=== PATIENT | female | born 1945 | race Hispanic/Latino ===

== ENCOUNTER 2021-08-11 17:25 | Inpatient (IN) | payer MEDICARE, OTHER ==
[~2021-08-11] VITALS: Ht 154.9 cm; Wt 48.4 kg
[2021-08-11 18:09] LABS: BASOPHILS % (AUTO) 0.1 % (0.0-5.0); HEMATOCRIT 29.4 % (36-48); LYMPHOCYTES % (AUTO) 2.4 % (21.0-51.0); MEAN CORPUSCULAR HEMOGLOBIN 31.3 pg (27.0-33.0); MEAN CORPUSCULAR HGB CONC 36.4 g/dL (32.0-36.0); MONOCYTES % (AUTO) 6.3 % (3.0-13.0); NEUTROPHILS % (AUTO) 89.4 % (40.0-77.0); PLATELET COUNT (AUTO) 222 K/uL (130-400); RED BLOOD CELL COUNT(AUTO) 3.42 MIL/uL (4.00-5.50); RED CELL DISTRIBUTION WIDTH 11.6 % (11.0-15.5); WHITE BLOOD COUNT (AUTO) 16.4 K/uL (4.8-10.8)
[2021-08-11 18:38] LABS: ALBUMIN 3.2 g/dL (3.5-5.0); BILIRUBIN,TOTAL 7.6 mg/dL (0.2-1.0); CREATININE 0.6 mg/dL (0.5-1.5); POTASSIUM 3.8 mmol/L (3.5-5.1); TOTAL PROTEIN, SERUM 6.8 g/dL (6.0-8.3)
[2021-08-11] MEDS ORDERED: SODIUM CHLORIDE 3% 100 ML IV ONE (19:30)
[2021-08-11] MEDS ORDERED: 0.9%NACL 1000ML 1,000 ML IV ONE (19:30)
[2021-08-11] MEDS ORDERED: DIATR MEGLU/DIATRIZOATE SODIUM 30 ML BOTTLE ONE (19:56)
[2021-08-11] MEDS ORDERED: IOHEXOL 350 MG/ML 100ML INFUS..BTL IV ONE (19:57)
[2021-08-11 22:01] LABS: APPEARANCE,URINE Clear (CLEAR); BILIRUBIN,URINE Moderate (NEGATIVE); COLOR,URINE Dark Yellow (YELLOW); GLUCOSE, URINE (UA) >=1000 mg/dL (NEGATIVE); KETONES,URINE 40 mg/dL (NEGATIVE); LEUKOCYTE ESTERASE ,URINE Negative (NEGATIVE); NITRATE,URINE Negative (NEGATIVE); OCCULT BLOOD,URINE Moderate (NEGATIVE); PROTEIN,URINE 300 mg/dL (NEGATIVE); UROBILINOGEN,URINE 0.2 mg/dL (0.2-1.0)
[2021-08-11 22:09] LABS: BACTERIA,URINE Rare /HPF (None Seen); WBC,URINE 0-1 /HPF (0-1)
[2021-08-11 22:10] LABS: SQUAMOUS EPITHELIAL CELL,UR Rare /HPF (0-2)
[2021-08-11] MEDS ORDERED: SITA100T12 PO (23:39)
[2021-08-11] MEDS ORDERED: METF-444 PO (23:39)
[2021-08-11] MEDS ORDERED: PIOG30TA70 PO (23:39)
[2021-08-11] MEDS ORDERED: GLIP5TAB11 PO (23:39)
[2021-08-11] MEDS ORDERED: PRAV20TA4 PO (23:39)
[2021-08-12] VITALS (15 sets, daily range): BP systolic 94–143; BP diastolic 36–64
[2021-08-12] MEDS ORDERED: INSULIN HUMULIN R 100 UNIT/ML 3ML SQ ONE
[2021-08-12] MEDS ORDERED: NITROGLYCERIN 0.4 MG SL TAB SL PRN
[2021-08-12] MEDS ORDERED: DEXTROSE 50%-WATER 50 ML DISP.SYRIN IV PRN
[2021-08-12] MEDS ORDERED: ONDANSETRON 4MG INJ IV PRN
[2021-08-12] MEDS ORDERED: GLUCAGON 1MG KIT 1 MG ML IM PRN
[2021-08-12 00:14] LABS: HEMOGLOBIN A1C 8.6 % (4.0-6.0)
[2021-08-12 00:23] LABS: ALBUMIN 2.8 g/dL (3.5-5.0); CREATININE 0.7 mg/dL (0.5-1.5); CRP QUANTITATIVE 114.8 mg/L (0.00-9.0); MAGNESIUM 1.6 mg/dL (1.80-2.40); POTASSIUM 3.7 mmol/L (3.5-5.1); TOTAL PROTEIN, SERUM 6.3 g/dL (6.0-8.3)
[2021-08-12 00:27] LABS: INR 1.09 (0.85-1.15); PROTHROMBIN TIME 11.8 SEC (9.6-11.6)
[2021-08-12 00:28] LABS: PARTIAL THROMBOPLASTIN TIME 25.4 SEC (26.3-35.5)
[2021-08-12] MEDS ORDERED: 0.9%NACL 1000ML 1,000 ML IV SCH (01:00)
[2021-08-12] MEDS: MAGNESIUM 2GM PREMIX 50ML 50 ML IV SCH ×2 (01:40→01:41)
[2021-08-12] MEDS ORDERED: HYDROMORPHONE 0.5 MG SYG (0.5MG/0.5ML) IVP PRN (02:00)
[2021-08-12] MEDS ORDERED: HYDRALAZINE 20MG/ML VIAL IV PRN (03:00)
[2021-08-12] MEDS: ZOSYN 3.375GM +NS 50ML IV SCH ×3 (03:41→18:11)
[2021-08-12 06:29] LABS: AMMONIA < 3 umol/L (11-32); SODIUM SERUM 119 mmol/L (136-145); THYROID STIMULATING HORMONE 0.29 uIU/mL (0.36-3.74)
[2021-08-12] MEDS: INSULIN HUMULIN R 100 UNIT/ML 3ML SQ SCH ×4 (07:30→21:00)
[2021-08-12] MEDS ORDERED: PREG100C55 PO (07:38)
[2021-08-12] MEDS ORDERED: VANCOMYCIN PROTOCOL PER PHARMACY IV SCH (08:00)
[2021-08-12] MEDS ORDERED: ENOXAPARIN SODIUM 40 MG/0.4 ML SYRINGE SQ SCH (09:00)
[2021-08-12] MEDS: FAMOTIDINE 20MG TAB PO SCH ×2 (09:00→20:27)
[2021-08-12] MEDS ORDERED: 0.9%NACL 50ML 50 ML IV ONE (09:25)
[2021-08-12] MEDS ORDERED: VANCOMYCIN 1G/250ML KIT 250 ML IV SCH (10:00)
[2021-08-12 10:14] LABS: BASOPHILS % (AUTO) 0.2 % (0.0-5.0); LYMPHOCYTES % (AUTO) 1.9 % (21.0-51.0); MEAN CORPUSCULAR HEMOGLOBIN 31.2 pg (27.0-33.0); MEAN CORPUSCULAR HGB CONC 36.1 g/dL (32.0-36.0); MEAN CORPUSCULAR VOLUME 86.4 fL (79-99); MONOCYTES % (AUTO) 4.6 % (3.0-13.0); NEUTROPHILS % (AUTO) 90.5 % (40.0-77.0); PLATELET COUNT (AUTO) 151 K/uL (130-400); RED BLOOD CELL COUNT(AUTO) 3.59 MIL/uL (4.00-5.50); RED CELL DISTRIBUTION WIDTH 11.7 % (11.0-15.5); WHITE BLOOD COUNT (AUTO) 16.5 K/uL (4.8-10.8)
[2021-08-12] MEDS ORDERED: GADOTERATE MEGLUMINE 10 MMOL/20 ML VIAL IV ONE (10:20)
[2021-08-12 10:32] LABS: ALBUMIN 2.7 g/dL (3.5-5.0); BILIRUBIN,TOTAL 8.6 mg/dL (0.2-1.0); CREATININE 0.8 mg/dL (0.5-1.5); MAGNESIUM 2.5 mg/dL (1.80-2.40); POTASSIUM 3.4 mmol/L (3.5-5.1); TOTAL PROTEIN, SERUM 6.2 g/dL (6.0-8.3)
[2021-08-12 14:24] LABS: CREATININE,URINE RANDOM 84 mg/dL (30-135); POTASSIUM,URINE RANDOM 50 mmol/L (25-125); SODIUM,URINE RANDOM < 14 mmol/l (40-220)
[2021-08-12 14:25] LABS: CREATININE 0.9 mg/dL (0.5-1.5); POTASSIUM 3.4 mmol/L (3.5-5.1)
[2021-08-12 14:29] LABS: AMPHET/METH SCREEN,URINE NEGATIVE (NEGATIVE); BARBITURATE SCREEN, URINE NEGATIVE (NEGATIVE); BENZODIAZEPINES SCREEN,URINE NEGATIVE (NEGATIVE); CANNABINOID SCREEN,URINE NEGATIVE (NEGATIVE); COCAINE SCREEN,URINE NEGATIVE (NEGATIVE); OPIATE SCREEN,URINE NEGATIVE (NEGATIVE); PHENCYCLIDINE SCREEN,URINE NEGATIVE (NEGATIVE)
[2021-08-12] MEDS ORDERED: 1/2 NS 1000ML 1,000 ML IV SCH (18:30)
[2021-08-12] MEDS ORDERED: HEPARIN 5,000 UNIT VIAL SQ SCH (18:30)
[2021-08-12 18:31] LABS: CREATININE 0.9 mg/dL (0.5-1.5); POTASSIUM 3.3 mmol/L (3.5-5.1)
[2021-08-12 21:56] LABS: POTASSIUM 3.7 mmol/L (3.5-5.1)
[2021-08-13] VITALS (24 sets, daily range): BP systolic 94–149; BP diastolic 45–83
[2021-08-13 01:39] LABS: CREATININE 0.8 mg/dL (0.5-1.5); POTASSIUM 3.2 mmol/L (3.5-5.1)
[2021-08-13] MEDS ORDERED: POTASSIUM CHLORIDE 10% ELIXIR 20 MEQ/15 ML UDCUP PO PRN (02:30)
[2021-08-13] MEDS ORDERED: LIDOCAINE HCL-MPF 1% 2ML VIAL IV PRN (02:30)
[2021-08-13] MEDS ORDERED: 0.9%NACL 50ML 50 ML IV ONE ×2 (02:37→19:47)
[2021-08-13] MEDS ORDERED: KCL 20 MEQ ERTAB PO ONE (02:38)
[2021-08-13] MEDS: ZOSYN 3.375GM +NS 50ML IV SCH ×3 (02:41→20:03)
[2021-08-13 04:20] LABS: HEMATOCRIT 29.4 % (36-48); MEAN CORPUSCULAR HEMOGLOBIN 31.3 pg (27.0-33.0); MEAN CORPUSCULAR HGB CONC 35.7 g/dL (32.0-36.0); MEAN CORPUSCULAR VOLUME 87.5 fL (79-99); RED BLOOD CELL COUNT(AUTO) 3.36 MIL/uL (4.00-5.50); RED CELL DISTRIBUTION WIDTH 12.1 % (11.0-15.5); WHITE BLOOD COUNT (AUTO) 18.5 K/uL (4.8-10.8)
[2021-08-13 04:53] LABS: ALBUMIN 2.3 g/dL (3.5-5.0); BILIRUBIN,DIRECT 6.9 mg/dL (0.0-0.3); BILIRUBIN,TOTAL 8.4 mg/dL (0.2-1.0); CREATININE 0.9 mg/dL (0.5-1.5); MAGNESIUM 2.7 mg/dL (1.80-2.40); POTASSIUM 4.1 mmol/L (3.5-5.1); TOTAL PROTEIN, SERUM 5.7 g/dL (6.0-8.3)
[2021-08-13] MEDS ORDERED: METOPROLOL TARTRATE 1 MG/ML 5ML VIAL IV ONE (07:00)
[2021-08-13] MEDS ORDERED: METOPROLOL TARTRATE 1 MG/ML 5ML VIAL IV SCH (07:25)
[2021-08-13] MEDS ORDERED: HEPARIN 25,000 UNITS/250ML D5W 250 ML IV SCH ×2 (07:30→08:32)
[2021-08-13] MEDS ORDERED: DILTIAZEM 125 MG/25 ML INJ 125 MG in 0.9%NACL 100ML 100 ML IV PRN ×4 (07:30)
[2021-08-13] MEDS ORDERED: DILTIAZEM 25MG INJ IVP PRN (07:30)
[2021-08-13] MEDS: DILTIAZEM 125 MG/25 ML INJ 125 MG in 0.9%NACL 100ML 100 ML IV SCH (07:44)
[2021-08-13 07:56] LABS: BASOPHILS % (AUTO) 0.1 % (0.0-5.0); EOSINOPHILS % (AUTO) 0.1 % (0.0-8.0); HEMATOCRIT 29.8 % (36-48); LYMPHOCYTES % (AUTO) 2.9 % (21.0-51.0); MEAN CORPUSCULAR HEMOGLOBIN 31.2 pg (27.0-33.0); MEAN CORPUSCULAR HGB CONC 35.6 g/dL (32.0-36.0); MEAN CORPUSCULAR VOLUME 87.6 fL (79-99); MONOCYTES % (AUTO) 5.5 % (3.0-13.0); NEUTROPHILS % (AUTO) 89.8 % (40.0-77.0); PLATELET COUNT (AUTO) 118 K/uL (130-400); RED CELL DISTRIBUTION WIDTH 12.3 % (11.0-15.5); WHITE BLOOD COUNT (AUTO) 16.1 K/uL (4.8-10.8)
[2021-08-13] MEDS: 0.9% NACL 250ML 250 ML IV SCH (08:27)
[2021-08-13] MEDS: HEPARIN 5,000 UNIT VIAL SQ SCH ×2 (08:29→20:09)
[2021-08-13] MEDS ORDERED: HYDROMORPHONE 0.5 MG SYG (0.5MG/0.5ML) IVP PRN ×2 (08:30)
[2021-08-13 08:41] LABS: INR 1.05 (0.85-1.15); PROTHROMBIN TIME 11.4 SEC (9.6-11.6)
[2021-08-13 08:43] LABS: PARTIAL THROMBOPLASTIN TIME 33.5 SEC (26.3-35.5)
[2021-08-13] MEDS ORDERED: VANCOMYCIN 750MG VIAL IVPB SCH (09:00)
[2021-08-13 09:29] LABS: CREATININE 0.7 mg/dL (0.5-1.5); POTASSIUM 3.5 mmol/L (3.5-5.1)
[2021-08-13] MEDS: FAMOTIDINE 20MG VIAL IV SCH ×2 (09:42→20:03)
[2021-08-13 11:13] LABS: CREATININE 0.7 mg/dL (0.5-1.5); POTASSIUM 3.5 mmol/L (3.5-5.1)
[2021-08-13] MEDS: INSULIN HUMULIN R 100 UNIT/ML 3ML SQ SCH ×3 (11:19→20:09)
[2021-08-13 14:59] LABS: CREATININE 0.8 mg/dL (0.5-1.5); POTASSIUM 4.7 mmol/L (3.5-5.1)
[2021-08-13 19:06] LABS: CREATININE 0.8 mg/dL (0.5-1.5); POTASSIUM 4.3 mmol/L (3.5-5.1)
[2021-08-14] VITALS (23 sets, daily range): BP systolic 110–141; BP diastolic 38–67
[2021-08-14 03:57] LABS: BASOPHILS % (AUTO) 0.1 % (0.0-5.0); EOSINOPHILS % (AUTO) 0.1 % (0.0-8.0); HEMATOCRIT 28.3 % (36-48); LYMPHOCYTES % (AUTO) 3.5 % (21.0-51.0); MONOCYTES % (AUTO) 7.3 % (3.0-13.0); PLATELET COUNT (AUTO) 174 K/uL (130-400); RED BLOOD CELL COUNT(AUTO) 3.29 MIL/uL (4.00-5.50); RED CELL DISTRIBUTION WIDTH 12.3 % (11.0-15.5); WHITE BLOOD COUNT (AUTO) 14.1 K/uL (4.8-10.8)
[2021-08-14 04:12] LABS: CREATININE 0.8 mg/dL (0.5-1.5); POTASSIUM 4.3 mmol/L (3.5-5.1)
[2021-08-14] MEDS ORDERED: 0.9%NACL 50ML 50 ML IV ONE (05:32)
[2021-08-14] MEDS: ZOSYN 3.375GM +NS 50ML IV SCH ×3 (05:33→19:46)
[2021-08-14] MEDS: DILTIAZEM 125 MG/25 ML INJ 125 MG in 0.9%NACL 100ML 100 ML IV SCH (06:36)
[2021-08-14] MEDS: INSULIN HUMULIN R 100 UNIT/ML 3ML SQ SCH ×4 (07:30→20:10)
[2021-08-14 08:37] LABS: CREATININE 0.8 mg/dL (0.5-1.5); POTASSIUM 4.2 mmol/L (3.5-5.1)
[2021-08-14] MEDS ORDERED: VANCOMYCIN 750MG VIAL IVPB SCH (09:00)
[2021-08-14] MEDS: FAMOTIDINE 20MG VIAL IV SCH ×2 (09:37→19:45)
[2021-08-14] MEDS: 0.9% NACL 250ML 250 ML IV SCH (09:40)
[2021-08-14] MEDS ORDERED: PROPOFOL 10 MG/ML 20ML VIAL IV ONE (12:18)
[2021-08-14 13:38] LABS: CREATININE 0.7 mg/dL (0.5-1.5); POTASSIUM 3.2 mmol/L (3.5-5.1)
[2021-08-14] MEDS: HEPARIN 5,000 UNIT VIAL SQ SCH ×2 (14:01→20:09)
[2021-08-14] MEDS: KCL 20 MEQ ERTAB PO PRN ×2 (14:26→17:20)
[2021-08-14] MEDS ORDERED: DEXTROSE 5 % AND 0.9 % NACL 1,000 ML IV ONE (15:04)
[2021-08-14] MEDS: DEXTROSE 5 % AND 0.9 % NACL 1,000 ML IV SCH (15:31)
[2021-08-14] MEDS ORDERED: 0.9%NACL 50ML 100 ML IV ONE (19:22)
[2021-08-15] VITALS (22 sets, daily range): BP systolic 102–144; BP diastolic 41–68
[2021-08-15 04:08] LABS: HEMATOCRIT 26.7 % (36-48); MEAN CORPUSCULAR HEMOGLOBIN 31.5 pg (27.0-33.0); MEAN CORPUSCULAR VOLUME 87.5 fL (79-99); RED BLOOD CELL COUNT(AUTO) 3.05 MIL/uL (4.00-5.50); RED CELL DISTRIBUTION WIDTH 12.9 % (11.0-15.5); WHITE BLOOD COUNT (AUTO) 11.1 K/uL (4.8-10.8)
[2021-08-15 04:27] LABS: BILIRUBIN,TOTAL 6.8 mg/dL (0.2-1.0); CREATININE 0.7 mg/dL (0.5-1.5); POTASSIUM 3.8 mmol/L (3.5-5.1); TOTAL PROTEIN, SERUM 5.5 g/dL (6.0-8.3)
[2021-08-15] MEDS: ZOSYN 3.375GM +NS 50ML IV SCH ×3 (05:05→20:44)
[2021-08-15] MEDS: INSULIN HUMULIN R 100 UNIT/ML 3ML SQ SCH ×4 (06:06→21:00)
[2021-08-15] MEDS: DEXTROSE 5 % AND 0.9 % NACL 1,000 ML IV SCH (08:14)
[2021-08-15] MEDS: FAMOTIDINE 20MG VIAL IV SCH ×2 (08:15→20:15)
[2021-08-15] MEDS: HEPARIN 5,000 UNIT VIAL SQ SCH ×3 (08:19→23:51)
[2021-08-15] MEDS: INSULIN GLARGINE 100 UNITS/ML 10 ML VIAL SQ SCH ×2 (08:21→20:16)
[2021-08-15] MEDS: DILTIAZEM 125 MG/25 ML INJ 125 MG in 0.9%NACL 100ML 100 ML IV SCH (08:25)
[2021-08-15] MEDS ORDERED: IOHEXOL-350 50ML VIAL IV ONE (11:24)
[2021-08-15] MEDS ORDERED: 0.9%NACL 100ML 100 ML ONE (12:01)
[2021-08-15] MEDS ORDERED: PROPOFOL 10 MG/ML 20ML VIAL IV ONE (12:20)
[2021-08-15] MEDS ORDERED: FENTANYL CITRATE PF 50 MCG/1 ML 2ML VIAL ONE (12:20)
[2021-08-15] MEDS ORDERED: SUCCINYLCHOLINE 200MG/10ML SYR ONE (12:21)
[2021-08-15] MEDS ORDERED: LIDOCAINE HCL 400MG/20ML VIAL ONE (12:21)
[2021-08-15] MEDS ORDERED: EPHEDRINE SULFATE 50 MG/ML AMPULE ONE (12:37)
[2021-08-15] MEDS: INDOMETHACIN 50 MG SUPP.RECT RC SCH (13:30)
[2021-08-16] VITALS (17 sets, daily range): BP systolic 122–174; BP diastolic 44–85
[2021-08-16 03:48] LABS: HEMATOCRIT 26.6 % (36-48); MEAN CORPUSCULAR HEMOGLOBIN 30.5 pg (27.0-33.0); MEAN CORPUSCULAR HGB CONC 35.3 g/dL (32.0-36.0); MEAN CORPUSCULAR VOLUME 86.4 fL (79-99); RED BLOOD CELL COUNT(AUTO) 3.08 MIL/uL (4.00-5.50); RED CELL DISTRIBUTION WIDTH 12.9 % (11.0-15.5); WHITE BLOOD COUNT (AUTO) 12.5 K/uL (4.8-10.8)
[2021-08-16] MEDS: DEXTROSE 5 % AND 0.9 % NACL 1,000 ML IV SCH ×2 (03:51→04:20)
[2021-08-16 03:59] LABS: CREATININE 0.7 mg/dL (0.5-1.5); PHOSPHORUS 0.9 mg/dL (2.5-4.9); POTASSIUM 3.2 mmol/L (3.5-5.1)
[2021-08-16] MEDS: ZOSYN 3.375GM +NS 50ML IV SCH ×3 (04:20→21:53)
[2021-08-16] MEDS: INSULIN HUMULIN R 100 UNIT/ML 3ML SQ SCH ×4 (05:26→22:09)
[2021-08-16] MEDS: INSULIN GLARGINE 100 UNITS/ML 10 ML VIAL SQ SCH ×2 (07:37→22:08)
[2021-08-16] MEDS: HEPARIN 5,000 UNIT VIAL SQ SCH ×2 (09:00→22:07)
[2021-08-16] MEDS ORDERED: METO-408 PO (09:03)
[2021-08-16] MEDS: FAMOTIDINE 20MG VIAL IV SCH ×2 (09:27→21:53)
[2021-08-16] MEDS ORDERED: METOPROLOL SUCCINATE 50 MG TAB.SR.24H PO SCH (09:30)
[2021-08-16] MEDS ORDERED: IODIXANOL 320 MG/ML 100 ML VIAL ONE (11:26)
[2021-08-16] MEDS ORDERED: LIDOCAINE HCL 1% MDV 50ML VIAL ONE (11:26)
[2021-08-16] MEDS ORDERED: ONDANSETRON 4MG INJ ONE (11:34)
[2021-08-16] MEDS ORDERED: SUCCINYLCHOLINE CHLORIDE 20 MG/ML 10 ML VIAL ONE (11:34)
[2021-08-16] MEDS ORDERED: MIDAZOLAM HCL 1 MG/ML 2ML VIAL ONE (11:34)
[2021-08-16] MEDS ORDERED: DEXAMETHASONE SOD PHOSPHATE 10MG/ML 1ML VIAL ONE (11:34)
[2021-08-16] MEDS ORDERED: GLYCOPYRROLATE 1 MG/5 ML SYRINGE ONE (11:34)
[2021-08-16] MEDS ORDERED: LIDOCAINE PF 100MG/5ML (2%) SYRINGE 5ML ONE (11:34)
[2021-08-16] MEDS ORDERED: ROCURONIUM 10MG/1ML SYR 10 MG/ML ML ONE (11:35)
[2021-08-16] MEDS ORDERED: FENTANYL CITRATE PF 50 MCG/1 ML 2ML VIAL ONE (11:35)
[2021-08-16] MEDS ORDERED: PROPOFOL 10 MG/ML 20ML VIAL IV ONE (11:35)
[2021-08-16] MEDS ORDERED: NEOSTIGMINE 5MG/5ML SYR IV ONE (11:35)
[2021-08-16] MEDS ORDERED: 0.9%NACL 50ML 50 ML IV ONE (13:29)
[2021-08-16] MEDS: INDOMETHACIN 50 MG SUPP.RECT RC SCH (13:30)
[2021-08-16] MEDS: LACTATED RINGERS 1000ML 1,000 ML IV SCH (15:56)
[2021-08-16] MEDS ORDERED: PHARMACY COMMUNICATION MISC SCH (16:00)
[2021-08-16] MEDS: KCL 20 MEQ ERTAB PO PRN (17:25)
[2021-08-16] MEDS: POTASSIUM CHLORIDE 20MEQ/100ML 100 ML IV PRN (17:26)
[2021-08-17 00:52] VITALS: BP 149/60
[2021-08-17 04:21] VITALS: BP 157/65
[2021-08-17 04:57] LABS: BASOPHILS % (AUTO) 0.2 % (0.0-5.0); HEMATOCRIT 29.1 % (36-48); LYMPHOCYTES % (AUTO) 3.9 % (21.0-51.0); MEAN CORPUSCULAR HEMOGLOBIN 31.2 pg (27.0-33.0); MEAN CORPUSCULAR HGB CONC 35.7 g/dL (32.0-36.0); MEAN CORPUSCULAR VOLUME 87.4 fL (79-99); MONOCYTES % (AUTO) 3.4 % (3.0-13.0); NEUTROPHILS % (AUTO) 88.5 % (40.0-77.0); PLATELET COUNT (AUTO) 344 K/uL (130-400); RED BLOOD CELL COUNT(AUTO) 3.33 MIL/uL (4.00-5.50); RED CELL DISTRIBUTION WIDTH 13.1 % (11.0-15.5); WHITE BLOOD COUNT (AUTO) 21.3 K/uL (4.8-10.8)
[2021-08-17] MEDS: ZOSYN 3.375GM +NS 50ML IV SCH ×3 (05:14→20:33)
[2021-08-17] MEDS: LACTATED RINGERS 1000ML 1,000 ML IV SCH ×2 (05:15→17:05)
[2021-08-17] MEDS: INSULIN HUMULIN R 100 UNIT/ML 3ML SQ SCH ×4 (06:21→20:32)
[2021-08-17] MEDS: INSULIN GLARGINE 100 UNITS/ML 10 ML VIAL SQ SCH ×2 (06:57→20:32)
[2021-08-17 07:02] LABS: CREATININE 0.6 mg/dL (0.5-1.5); POTASSIUM 4.2 mmol/L (3.5-5.1)
[2021-08-17 08:00] VITALS: BP 162/69
[2021-08-17] MEDS: FAMOTIDINE 20MG VIAL IV SCH ×2 (09:42→20:14)
[2021-08-17] MEDS: METOPROLOL SUCCINATE 50 MG TAB.SR.24H PO SCH ×2 (09:42→20:14)
[2021-08-17] MEDS: HEPARIN 5,000 UNIT VIAL SQ SCH ×2 (09:44→20:32)
[2021-08-17 12:00] VITALS: BP 160/72
[2021-08-17] MEDS: INDOMETHACIN 50 MG SUPP.RECT RC SCH (13:11)
[2021-08-17 16:00] VITALS: BP 160/70
[2021-08-17 20:00] VITALS: BP 139/52
[2021-08-18] VITALS: BP 163/72
[2021-08-18 04:00] VITALS: BP 167/76
[2021-08-18 04:45] LABS: BASOPHILS % (AUTO) 0.4 % (0.0-5.0); EOSINOPHILS % (AUTO) 0.6 % (0.0-8.0); HEMATOCRIT 28.6 % (36-48); LYMPHOCYTES % (AUTO) 10.1 % (21.0-51.0); MEAN CORPUSCULAR HEMOGLOBIN 30.5 pg (27.0-33.0); MEAN CORPUSCULAR HGB CONC 35.7 g/dL (32.0-36.0); MEAN CORPUSCULAR VOLUME 85.6 fL (79-99); MONOCYTES % (AUTO) 6.2 % (3.0-13.0); PLATELET COUNT (AUTO) 415 K/uL (130-400); RED BLOOD CELL COUNT(AUTO) 3.34 MIL/uL (4.00-5.50); RED CELL DISTRIBUTION WIDTH 13.1 % (11.0-15.5)
[2021-08-18] MEDS: ZOSYN 3.375GM +NS 50ML IV SCH ×3 (04:49→20:44)
[2021-08-18 04:55] LABS: ALANINE AMINOTRANSFERASE 169 U/L (12-78); ALBUMIN 2.1 g/dL (3.5-5.0); ASPARTATE AMINOTRANSFERASE 72 U/L (10-37); BILIRUBIN,DIRECT 2.3 mg/dL (0.0-0.3); BILIRUBIN,TOTAL 2.9 mg/dL (0.2-1.0); CARBON DIOXIDE 32 mmol/L (21-32); CHLORIDE 101 mmol/L (101-111); CREATININE 0.7 mg/dL (0.5-1.5); GLOMERULAR FILTR. RATE CALC 86 mL/min (>60); GLUCOSE,RANDOM 97 mg/dL (70-105); POTASSIUM 3.7 mmol/L (3.5-5.1); SODIUM SERUM 137 mmol/L (136-145); TOTAL PROTEIN, SERUM 5.9 g/dL (6.0-8.3); UREA NITROGEN, BLOOD 10 mg/dL (7-18)
[2021-08-18 06:07] LABS: AMMONIA < 4 umol/L (11-32)
[2021-08-18] MEDS: INSULIN HUMULIN R 100 UNIT/ML 3ML SQ SCH ×4 (06:10→20:53)
[2021-08-18] MEDS: INSULIN GLARGINE 100 UNITS/ML 10 ML VIAL SQ SCH ×2 (06:12→20:47)
[2021-08-18 08:00] VITALS: BP 150/65
[2021-08-18] MEDS: FAMOTIDINE 20MG VIAL IV SCH ×2 (09:27→20:44)
[2021-08-18] MEDS: METOPROLOL SUCCINATE 50 MG TAB.SR.24H PO SCH ×2 (09:27→20:44)
[2021-08-18] MEDS: HEPARIN 5,000 UNIT VIAL SQ SCH ×2 (09:29→20:46)
[2021-08-18 11:34] VITALS: BP 157/64
[2021-08-18] MEDS: INDOMETHACIN 50 MG SUPP.RECT RC SCH (12:10)
[2021-08-18 16:00] VITALS: BP 155/66
[2021-08-18 20:00] VITALS: BP 146/60
[2021-08-19] VITALS: BP 151/68
[2021-08-19 04:00] VITALS: BP 149/63
[2021-08-19] MEDS: ZOSYN 3.375GM +NS 50ML IV SCH ×3 (04:36→20:26)
[2021-08-19 04:55] LABS: BASOPHILS % (AUTO) 0.9 % (0.0-5.0); EOSINOPHILS % (AUTO) 1.8 % (0.0-8.0); LYMPHOCYTES % (AUTO) 14.7 % (21.0-51.0); MEAN CORPUSCULAR HEMOGLOBIN 31.1 pg (27.0-33.0); MEAN CORPUSCULAR HGB CONC 35.5 g/dL (32.0-36.0); MEAN CORPUSCULAR VOLUME 87.6 fL (79-99); MONOCYTES % (AUTO) 6.8 % (3.0-13.0); NEUTROPHILS % (AUTO) 59.7 % (40.0-77.0); PLATELET COUNT (AUTO) 392 K/uL (130-400); RED BLOOD CELL COUNT(AUTO) 3.31 MIL/uL (4.00-5.50); RED CELL DISTRIBUTION WIDTH 13.2 % (11.0-15.5); WHITE BLOOD COUNT (AUTO) 12.9 K/uL (4.8-10.8)
[2021-08-19 05:26] LABS: ALBUMIN 2.4 g/dL (3.5-5.0); BILIRUBIN,DIRECT 2.1 mg/dL (0.0-0.3); BILIRUBIN,TOTAL 2.6 mg/dL (0.2-1.0); CREATININE 0.7 mg/dL (0.5-1.5); TOTAL PROTEIN, SERUM 6.1 g/dL (6.0-8.3)
[2021-08-19 05:29] LABS: POTASSIUM 2.9 mmol/L (3.5-5.1)
[2021-08-19] MEDS: KCL 20 MEQ ERTAB PO PRN (05:46)
[2021-08-19] MEDS: INSULIN HUMULIN R 100 UNIT/ML 3ML SQ SCH ×4 (06:21→20:29)
[2021-08-19 07:35] VITALS: BP 149/57
[2021-08-19] MEDS: INSULIN GLARGINE 100 UNITS/ML 10 ML VIAL SQ SCH ×2 (08:35→20:30)
[2021-08-19] MEDS: POTASSIUM CHLORIDE 20MEQ/100ML 100 ML IV PRN (10:02)
[2021-08-19] MEDS: METOPROLOL SUCCINATE 50 MG TAB.SR.24H PO SCH ×2 (10:03→20:27)
[2021-08-19] MEDS: FAMOTIDINE 20MG VIAL IV SCH ×2 (10:03→20:27)
[2021-08-19] MEDS: HEPARIN 5,000 UNIT VIAL SQ SCH ×2 (10:04→20:31)
[2021-08-19 11:30] VITALS: BP 153/69
[2021-08-19] MEDS: INDOMETHACIN 50 MG SUPP.RECT RC SCH (13:16)
[2021-08-19 15:30] VITALS: BP 158/67
[2021-08-19 20:00] VITALS: BP 149/64
[2021-08-20] VITALS: BP 131/74
[2021-08-20 03:55] VITALS: BP 150/62
[2021-08-20 04:24] LABS: BASOPHILS % (AUTO) 0.7 % (0.0-5.0); EOSINOPHILS % (AUTO) 1.4 % (0.0-8.0); HEMATOCRIT 27.7 % (36-48); MEAN CORPUSCULAR HEMOGLOBIN 30.6 pg (27.0-33.0); MEAN CORPUSCULAR VOLUME 87.4 fL (79-99); MONOCYTES % (AUTO) 5.8 % (3.0-13.0); NEUTROPHILS % (AUTO) 59.2 % (40.0-77.0); NUCLEATED RED BLOOD CELLS 0.2 % (0.0-0.19); PLATELET COUNT (AUTO) 440 K/uL (130-400); RED BLOOD CELL COUNT(AUTO) 3.17 MIL/uL (4.00-5.50); RED CELL DISTRIBUTION WIDTH 13.4 % (11.0-15.5)
[2021-08-20 04:43] LABS: ALBUMIN 2.2 g/dL (3.5-5.0); BILIRUBIN,DIRECT 1.7 mg/dL (0.0-0.3); BILIRUBIN,TOTAL 2.3 mg/dL (0.2-1.0); CREATININE 0.8 mg/dL (0.5-1.5); POTASSIUM 3.5 mmol/L (3.5-5.1); TOTAL PROTEIN, SERUM 5.6 g/dL (6.0-8.3)
[2021-08-20] MEDS: INSULIN HUMULIN R 100 UNIT/ML 3ML SQ SCH ×4 (06:06→20:59)
[2021-08-20] MEDS: ZOSYN 3.375GM +NS 50ML IV SCH ×3 (06:06→20:29)
[2021-08-20] MEDS: INSULIN GLARGINE 100 UNITS/ML 10 ML VIAL SQ SCH ×2 (07:47→20:59)
[2021-08-20 08:00] VITALS: BP 145/53
[2021-08-20] MEDS: FAMOTIDINE 20MG VIAL IV SCH ×2 (10:59→20:29)
[2021-08-20] MEDS: METOPROLOL SUCCINATE 50 MG TAB.SR.24H PO SCH ×2 (11:00→20:29)
[2021-08-20] MEDS: HEPARIN 5,000 UNIT VIAL SQ SCH ×2 (11:47→20:59)
[2021-08-20 12:00] VITALS: BP 148/63
[2021-08-20] MEDS: INDOMETHACIN 50 MG SUPP.RECT RC SCH (13:30)
[2021-08-20 16:00] VITALS: BP 140/55
[2021-08-20 20:20] VITALS: BP 142/60
[2021-08-21 00:16] VITALS: BP 137/53
[2021-08-21 04:16] VITALS: BP 149/69
[2021-08-21] MEDS: ZOSYN 3.375GM +NS 50ML IV SCH ×3 (05:27→21:11)
[2021-08-21 06:13] LABS: ALBUMIN 2.6 g/dL (3.5-5.0); BILIRUBIN,DIRECT 1.7 mg/dL (0.0-0.3); BILIRUBIN,TOTAL 2.3 mg/dL (0.2-1.0)
[2021-08-21] MEDS: INSULIN HUMULIN R 100 UNIT/ML 3ML SQ SCH ×4 (06:32→21:10)
[2021-08-21] MEDS: INSULIN GLARGINE 100 UNITS/ML 10 ML VIAL SQ SCH ×2 (06:32→21:10)
[2021-08-21 08:00] VITALS: BP 144/56
[2021-08-21] MEDS: METOPROLOL SUCCINATE 50 MG TAB.SR.24H PO SCH ×2 (09:19→21:08)
[2021-08-21] MEDS: FAMOTIDINE 20MG VIAL IV SCH ×2 (09:19→21:11)
[2021-08-21] MEDS: HEPARIN 5,000 UNIT VIAL SQ SCH ×2 (09:31→21:09)
[2021-08-21 12:00] VITALS: BP 151/61
[2021-08-21] MEDS: INDOMETHACIN 50 MG SUPP.RECT RC SCH (13:30)
[2021-08-21 16:00] VITALS: BP 145/58
[2021-08-21 20:46] VITALS: BP 143/64
[2021-08-22] VITALS (7 sets, daily range): BP systolic 129–145; BP diastolic 52–72
[2021-08-22 03:52] LABS: HEMATOCRIT 31.1 % (36-48); MEAN CORPUSCULAR HEMOGLOBIN 30.7 pg (27.0-33.0); MEAN CORPUSCULAR HGB CONC 34.1 g/dL (32.0-36.0); MEAN CORPUSCULAR VOLUME 90.1 fL (79-99); RED BLOOD CELL COUNT(AUTO) 3.45 MIL/uL (4.00-5.50); RED CELL DISTRIBUTION WIDTH 13.9 % (11.0-15.5); WHITE BLOOD COUNT (AUTO) 17.1 K/uL (4.8-10.8)
[2021-08-22 04:11] LABS: ALBUMIN 2.9 g/dL (3.5-5.0); BILIRUBIN,TOTAL 2.3 mg/dL (0.2-1.0); CREATININE 0.8 mg/dL (0.5-1.5); POTASSIUM 3.6 mmol/L (3.5-5.1); TOTAL PROTEIN, SERUM 6.8 g/dL (6.0-8.3)
[2021-08-22] MEDS: ZOSYN 3.375GM +NS 50ML IV SCH ×3 (05:26→23:06)
[2021-08-22] MEDS: INSULIN HUMULIN R 100 UNIT/ML 3ML SQ SCH ×4 (06:37→23:38)
[2021-08-22] MEDS: METOPROLOL SUCCINATE 50 MG TAB.SR.24H PO SCH ×2 (08:34→23:06)
[2021-08-22] MEDS: FAMOTIDINE 20MG VIAL IV SCH ×2 (08:37→23:46)
[2021-08-22] MEDS: HEPARIN 5,000 UNIT VIAL SQ SCH ×2 (08:51→23:35)
[2021-08-22] MEDS: INSULIN GLARGINE 100 UNITS/ML 10 ML VIAL SQ SCH ×2 (08:51→23:36)
[2021-08-23 03:42] VITALS: BP 111/40
[2021-08-23] MEDS: ZOSYN 3.375GM +NS 50ML IV SCH ×3 (05:03→21:22)
[2021-08-23 05:51] LABS: HEMATOCRIT 29.6 % (36-48); MEAN CORPUSCULAR HEMOGLOBIN 30.7 pg (27.0-33.0); MEAN CORPUSCULAR HGB CONC 34.1 g/dL (32.0-36.0); RED BLOOD CELL COUNT(AUTO) 3.29 MIL/uL (4.00-5.50); RED CELL DISTRIBUTION WIDTH 14.2 % (11.0-15.5); WHITE BLOOD COUNT (AUTO) 15.4 K/uL (4.8-10.8)
[2021-08-23 06:02] LABS: CREATININE 0.9 mg/dL (0.5-1.5); POTASSIUM 3.5 mmol/L (3.5-5.1)
[2021-08-23] MEDS: INSULIN GLARGINE 100 UNITS/ML 10 ML VIAL SQ SCH ×2 (07:30→21:29)
[2021-08-23] MEDS: INSULIN HUMULIN R 100 UNIT/ML 3ML SQ SCH ×3 (07:30→21:30)
[2021-08-23 07:35] VITALS: BP 148/64
[2021-08-23] MEDS: METOPROLOL SUCCINATE 50 MG TAB.SR.24H PO SCH ×2 (09:42→21:24)
[2021-08-23] MEDS: FAMOTIDINE 20MG VIAL IV SCH ×2 (09:45→21:21)
[2021-08-23] MEDS: HEPARIN 5,000 UNIT VIAL SQ SCH ×2 (09:51→21:27)
[2021-08-23 11:45] VITALS: BP 145/59
[2021-08-23 15:25] VITALS: BP 143/60
[2021-08-23 19:00] VITALS: BP 141/51
[2021-08-23 23:53] VITALS: BP 141/56
[2021-08-24 04:00] VITALS: BP 142/53
[2021-08-24] MEDS: ZOSYN 3.375GM +NS 50ML IV SCH ×2 (04:58→14:09)
[2021-08-24] MEDS: INSULIN HUMULIN R 100 UNIT/ML 3ML SQ SCH ×3 (06:59→17:52)
[2021-08-24] MEDS: INSULIN GLARGINE 100 UNITS/ML 10 ML VIAL SQ SCH (07:10)
[2021-08-24 07:56] VITALS: BP 130/50
[2021-08-24] MEDS: METOPROLOL SUCCINATE 50 MG TAB.SR.24H PO SCH (09:33)
[2021-08-24] MEDS: FAMOTIDINE 20MG VIAL IV SCH (09:34)
[2021-08-24] MEDS: HEPARIN 5,000 UNIT VIAL SQ SCH (09:43)
[2021-08-24 12:00] VITALS: BP 145/59
[2021-08-24 16:00] VITALS: BP 167/63
== END 2021-08-24 19:03 | disposition short-term general hospital (02) | DRG 871 ==
LOC: EDH 17:25 → EDHIP 23:26 → 2DH 08-12 08:57 → 3BH 08-16 18:04
PROVIDERS: ADMIT Internal Medicine; ATTEND Internal Medicine
PROC: 0FBG8ZX Excision of Pancreas, Via Natural or Artificial Opening Endoscopic, Diagnostic (ICD-10-PCS; 2021-08-14)
PROC: 0FJD8ZZ Inspection of Pancreatic Duct, Via Natural or Artificial Opening Endoscopic (ICD-10-PCS; 2021-08-15)
PROC: 0F9930Z Drainage of Common Bile Duct with Drainage Device, Percutaneous Approach (ICD-10-PCS; principal; 2021-08-16)
DX: A41.9 Sepsis, unspecified organism (principal); E43 Unspecified severe protein-calorie malnutrition; E87.1 Hypo-osmolality and hyponatremia; K80.63 Calculus of gallbladder and bile duct with acute cholecystitis with obstruction; N17.9 Acute kidney failure, unspecified; C25.0 Malignant neoplasm of head of pancreas; K86.2 Cyst of pancreas; K83.09 Other cholangitis; E83.52 Hypercalcemia; E83.42 Hypomagnesemia; B96.89 Other specified bacterial agents as the cause of diseases classified elsewhere; D63.8 Anemia in other chronic diseases classified elsewhere; E03.8 Other specified hypothyroidism; E11.42 Type 2 diabetes mellitus with diabetic polyneuropathy; E11.65 Type 2 diabetes mellitus with hyperglycemia; E87.6 Hypokalemia; E78.5 Hyperlipidemia, unspecified; E78.00 Pure hypercholesterolemia, unspecified; N18.9 Chronic kidney disease, unspecified; Z20.822 Contact with and (suspected) exposure to COVID-19; D69.6 Thrombocytopenia, unspecified; E11.22 Type 2 diabetes mellitus with diabetic chronic kidney disease; E87.8 Other disorders of electrolyte and fluid balance, not elsewhere classified; K86.89 Other specified diseases of pancreas; R74.8 Abnormal levels of other serum enzymes; K83.8 Other specified diseases of biliary tract; I12.9 Hypertensive chronic kidney disease with stage 1 through stage 4 chronic kidney disease, or unspecified chronic kidney disease; I48.91 Unspecified atrial fibrillation; B96.1 Klebsiella pneumoniae [K. pneumoniae] as the cause of diseases classified elsewhere; K76.0 Fatty (change of) liver, not elsewhere classified; K82.8 Other specified diseases of gallbladder; R62.7 Adult failure to thrive; Z68.20 Body mass index [BMI] 20.0-20.9, adult; Z79.01 Long term (current) use of anticoagulants; Z79.84 Long term (current) use of oral hypoglycemic drugs; Z79.899 Other long term (current) drug therapy; Z90.711 Acquired absence of uterus with remaining cervical stump; Z83.3 Family history of diabetes mellitus; Z80.3 Family history of malignant neoplasm of breast; Z82.49 Family history of ischemic heart disease and other diseases of the circulatory system
CPT/HCPCS: 36415; 43242; 43260; 47534; 71045; 74177; 74183; 74330; 76705; 76942; 80048; 80053; 80061; 80076; 80202; 80305; 81001; 82140; 82150; 82180; 82248; 82306; 82330; 82533; 82550; 82570; 82948; 83036; 83605; 83690; 83735; 83930; 83935; 83970; 84100; 84132; 84133; 84145; 84295; 84300; 84439; 84443; 84481; 84484; 84550; 85025; 85027; 85610; 85651; 85730; 86140; 86316; 87040; 87077; 87186; 87635; 93005; 93306; 93356; 97039; C1729; C1769; G0378; J0330; J0360; J1100; J1644; J1815; J2001; J2250; J2405; J2543; J2704; J2710; J3010; J3370; J3475; J3480; J3490; J7030; J7042; J7050; J7120; Q9963; Q9967